=== PATIENT | female | born 1960 | race Caucasian/White ===

== ENCOUNTER 2019-07-09 19:29 | Emergency (ER) | payer BC ==
[~2019-07-09] VITALS: Wt 104.3 kg
[~2019-07-09 19:29] MED LIST: 'PARAFON FORTE500 M1 PO; ASPIRIN CHILDRE81 MG PO; ATIVAN1 MG PO; CARVEDILOL12.5 MG PO; CITALOPRAM20 MG PO; HYDR25T PO; HYDROCODONE BIT1 T11 PO; LISINOPRIL20 MG PO; LISINOPRIL5 MG PO; LOVASTATIN40 MG PO; NITROSTAT0.4 MG SL; PERCOCET 325 MG1 TA3 PO; PREDNISONE10 MG PO; SKELAXIN800 M1 PO; SYNTHROID,LEV100 MCG PO; ZESTRIL,PRINIVI10 MG PO; ZOLPIDEM5 MG PO
[2019-07-09 19:30] VITALS: BP 133/70
== END 2019-07-09 21:21 | disposition home or self-care (01) ==
LOC: ED 19:29
DX: S93.402A Sprain of unspecified ligament of left ankle, initial encounter (principal); I10 Essential (primary) hypertension; E03.9 Hypothyroidism, unspecified; E78.00 Pure hypercholesterolemia, unspecified; F17.200 Nicotine dependence, unspecified, uncomplicated; Z88.8 Allergy status to other drugs, medicaments and biological substances; Z79.899 Other long term (current) drug therapy; W10.8XXA Fall (on) (from) other stairs and steps, initial encounter; Y93.89 Activity, other specified; Y92.89 Other specified places as the place of occurrence of the external cause; Y99.8 Other external cause status

== ENCOUNTER 2019-12-14 12:01 | Inpatient (IN) | payer BC ==
[~2019-12-14] VITALS: Ht 168 cm; Wt 140.6 kg
[2019-12-14 12:49] LABS: BASO % 0.3 % (0.0-1.0); EOS # 0.2 10*3/uL (0.0-0.4); EOS % 2.4 % (1.0-4.0); HEMATOCRIT 41.3 % (37.0-47.0); LYMPH % 34.6 % (27.0-41.0); MEAN CELL VOLUME 94.1 fl (81.0-99.0); MEAN CORPUSCULAR HGB CONC 32.9 g/dl (33.0-37.0); MEAN PLATELET VOLUME 11.5 fl (9.6-12.3); MONO # 0.9 10*3/uL (0.1-1.0); MONO % 10.1 % (3.0-9.0); NEUT # 4.6 10*3/uL (2.3-7.9); NEUT % 52.4 % (47.0-73.0); PLATELET COUNT AUTOMATED 195 10*3/uL (130-400); RED BLOOD COUNT 4.39 10*6/uL (4.10-5.10); RED CELL DISTRI WIDTH 13.1 % (0-14.5); WHITE BLOOD COUNT 8.7 10*3/uL (4.8-10.8)
[2019-12-14 13:00] VITALS: BP 126/84
[2019-12-14 13:00] LABS: ACT PARTIAL THROMBO TIME 26.1 SECONDS (20.0-32.1); INTERNATIONAL NORM RATIO 0.9 (2.0-3.5)
[2019-12-14 13:05] LABS: ALBUMIN 3.5 gm/dl (3.1-4.5); ALKALINE PHOSPHATASE 87 U/L (45-117); BUN 15 mg/dl (7-24); CHLORIDE 107 mmol/L (98-107); CREATININE 0.82 mg/dL (0.55-1.02); POTASSIUM 3.2 mmol/L (3.5-5.1); SGOT/AST 22 IU/L (3-35); SGPT/ALT 33 U/L (12-78); SODIUM 140 mmol/L (136-145); TOTAL PROTEIN 7.6 gm/dL (6.4-8.2)
[2019-12-14 13:06] LABS: TROPONIN I < 0.015 ng/ml (<0.045)
[2019-12-14 15:00] VITALS: BP 124/82
[2019-12-14 16:00] VITALS: BP 126/81
[2019-12-14 17:00] VITALS: BP 122/88
[2019-12-14 18:00] VITALS: BP 120/64
[2019-12-14 20:00] VITALS: BP 136/69
[2019-12-15] VITALS: BP 99/50
[2019-12-15 06:10] LABS: BASO % 0.4 % (0.0-1.0); EOS # 0.2 10*3/uL (0.0-0.4); EOS % 2.8 % (1.0-4.0); HEMATOCRIT 39.3 % (37.0-47.0); LYMPH # 2.6 10*3/uL (1.3-4.4); MEAN CELL VOLUME 93.6 fl (81.0-99.0); MEAN CORPUSCULAR HGB 30.2 pg (27.0-31.0); MEAN CORPUSCULAR HGB CONC 32.3 g/dl (33.0-37.0); MEAN PLATELET VOLUME 11.2 fl (9.6-12.3); MONO # 0.7 10*3/uL (0.1-1.0); MONO % 9.4 % (3.0-9.0); NEUT # 3.9 10*3/uL (2.3-7.9); NEUT % 52.1 % (47.0-73.0); PLATELET COUNT AUTOMATED 211 10*3/uL (130-400); RED CELL DISTRI WIDTH 13.2 % (0-14.5); WHITE BLOOD COUNT 7.5 10*3/uL (4.8-10.8)
[2019-12-15 06:36] LABS: BUN 16 mg/dl (7-24); CHLORIDE 108 mmol/L (98-107); CHOLESTEROL 218 mg/dL (<200); CREATININE 0.79 mg/dL (0.55-1.02); POTASSIUM 3.5 mmol/L (3.5-5.1); SODIUM 140 mmol/L (136-145); TRIGLYCERIDES 152 mg/dl (<150); VLDL CHOLESTEROL 30 mg/dL (6-40)
[2019-12-15 06:46] LABS: HDL CHOLESTEROL 36 mg/dl (40-60); LDL CHOLESTEROL 152 mg/dL (9-159)
[2019-12-15 07:37] LABS: VITAMIN D, 25-HYDROXY 14.4 ng/mL (30-100)
[2019-12-15 08:00] VITALS: BP 114/64
[2019-12-15] MEDS ORDERED: HYDR25T PO (09:16)
[2019-12-15] MEDS ORDERED: LOSARTAN POTASS50 M1 PO (09:16)
[2019-12-15] MEDS ORDERED: ASPIRIN ADULT L81 M1 PO (09:18)
[2019-12-15 12:00] VITALS: BP 142/75
[2019-12-15] MEDS ORDERED: VITAMIN D325 MCG PO (15:02)
== END 2019-12-15 16:38 | disposition home or self-care (01) | DRG 392 ==
LOC: ED 12:01 → EDHOLD 17:46 → 4E 18:07
PROVIDERS: Emergency Medicine; Internal Medicine; ADMIT Internal Medicine
DX: K21.9 Gastro-esophageal reflux disease without esophagitis (principal); Z68.43 Body mass index [BMI] 50.0-59.9, adult; E78.5 Hyperlipidemia, unspecified; M19.90 Unspecified osteoarthritis, unspecified site; F32.9 Major depressive disorder, single episode, unspecified; F41.9 Anxiety disorder, unspecified; E66.9 Obesity, unspecified; E87.6 Hypokalemia; F17.210 Nicotine dependence, cigarettes, uncomplicated; I10 Essential (primary) hypertension; E03.9 Hypothyroidism, unspecified; I25.10 Atherosclerotic heart disease of native coronary artery without angina pectoris; E83.41 Hypermagnesemia; E78.1 Pure hyperglyceridemia; E87.8 Other disorders of electrolyte and fluid balance, not elsewhere classified; Z95.1 Presence of aortocoronary bypass graft; I25.2 Old myocardial infarction; Z83.3 Family history of diabetes mellitus; Z82.49 Family history of ischemic heart disease and other diseases of the circulatory system; Z88.8 Allergy status to other drugs, medicaments and biological substances; Z71.6 Tobacco abuse counseling; Z90.710 Acquired absence of both cervix and uterus; Z82.3 Family history of stroke

== ENCOUNTER 2020-06-13 01:36 | Emergency (ER) | payer BC ==
[~2020-06-13] VITALS: Ht 167.6 cm; Wt 130.6 kg
[~2020-06-13 01:36] MED LIST changes: +ASPIRIN ADULT L81 M1 PO; +LOSARTAN POTASS50 M1 PO; +VITAMIN D325 MCG PO
[2020-06-13 02:07] VITALS: BP 141/78
[2020-06-13 02:12] LABS: BASO # 0.1 10*3/uL (0.0-0.1); BASO % 0.6 % (0.0-1.0); EOS # 0.1 10*3/uL (0.0-0.4); EOS % 1.3 % (1.0-4.0); HEMATOCRIT 44.8 % (37.0-47.0); LYMPH # 3.5 10*3/uL (1.3-4.4); MEAN CELL VOLUME 90.1 fl (81.0-99.0); MEAN CORPUSCULAR HGB 29.2 pg (27.0-31.0); MEAN CORPUSCULAR HGB CONC 32.4 g/dl (33.0-37.0); MEAN PLATELET VOLUME 11.9 fl (9.6-12.3); MONO # 0.8 10*3/uL (0.1-1.0); MONO % 7.6 % (3.0-9.0); NEUT # 6.3 10*3/uL (2.3-7.9); NEUT % 58.3 % (47.0-73.0); PLATELET COUNT AUTOMATED 253 10*3/uL (130-400); RED BLOOD COUNT 4.97 10*6/uL (4.10-5.10); RED CELL DISTRI WIDTH 12.7 % (0-14.5); WHITE BLOOD COUNT 10.9 10*3/uL (4.8-10.8)
[2020-06-13 02:36] LABS: ALBUMIN 3.5 gm/dl (3.1-4.5); ALKALINE PHOSPHATASE 117 U/L (45-117); BUN 19 mg/dl (7-24); CHLORIDE 104 mmol/L (98-107); CREATININE 1.51 mg/dL (0.55-1.02); POTASSIUM 2.8 mmol/L (3.5-5.1); SGOT/AST 26 IU/L (3-35); SGPT/ALT 29 U/L (12-78); SODIUM 139 mmol/L (136-145); TOTAL PROTEIN 8.1 gm/dL (6.4-8.2)
[2020-06-13 02:37] LABS: TROPONIN I < 0.015 ng/ml (<0.045)
== END 2020-06-13 03:51 | disposition short-term general hospital (02) ==
LOC: ED 01:36
PROVIDERS: Internal Medicine
DX: I21.19 ST elevation (STEMI) myocardial infarction involving other coronary artery of inferior wall (principal); I10 Essential (primary) hypertension; F17.200 Nicotine dependence, unspecified, uncomplicated; Z88.8 Allergy status to other drugs, medicaments and biological substances; Z79.899 Other long term (current) drug therapy; Z79.82 Long term (current) use of aspirin; Z95.1 Presence of aortocoronary bypass graft

== ENCOUNTER 2021-09-08 23:18 | Emergency (ER) | payer OTHER ==
[~2021-09-08] VITALS: Ht 170.1 cm; Wt 143.3 kg
[2021-09-08 23:30] VITALS: BP 124/63
[2021-09-08 23:56] LABS: BASO % 0.4 % (0.0-1.0); EOS # 0.2 10*3/uL (0.0-0.4); EOS % 2.3 % (1.0-4.0); LYMPH # 2.6 10*3/uL (1.3-4.4); LYMPH % 27.1 % (27.0-41.0); MEAN CELL VOLUME 91.5 fl (81.0-99.0); MEAN CORPUSCULAR HGB 30.1 pg (27.0-31.0); MEAN CORPUSCULAR HGB CONC 32.9 g/dl (33.0-37.0); MEAN PLATELET VOLUME 10.5 fl (9.6-12.3); MONO # 0.9 10*3/uL (0.1-1.0); MONO % 9.3 % (3.0-9.0); NEUT # 5.7 10*3/uL (2.3-7.9); NEUT % 60.7 % (47.0-73.0); PLATELET COUNT AUTOMATED 208 10*3/uL (130-400); RED BLOOD COUNT 4.48 10*6/uL (4.10-5.10); RED CELL DISTRI WIDTH 13.1 % (0-14.5); WHITE BLOOD COUNT 9.4 10*3/uL (4.8-10.8)
[2021-09-09 00:13] LABS: ALKALINE PHOSPHATASE 105 U/L (45-117); BUN 12 mg/dl (7-24); CHLORIDE 108 mmol/L (98-107); CREATININE 0.99 mg/dL (0.55-1.02); POTASSIUM 3.4 mmol/L (3.5-5.1); SGOT/AST 18 IU/L (3-35); SGPT/ALT 31 U/L (12-78); SODIUM 139 mmol/L (136-145); TOTAL PROTEIN 7.3 gm/dL (6.4-8.2)
[2021-09-09] MEDS ORDERED: PREDNISONE10 MG PO (02:46)
[2021-09-09] MEDS ORDERED: OXYCODONE-ACET1 EAC1 PO (02:46)
[2021-09-09] MEDS ORDERED: CYCLOBENZAPRINE10 MG PO (02:46)
== END 2021-09-09 02:39 | disposition home or self-care (01) ==
LOC: ED 23:18
PROVIDERS: Emergency Medicine
DX: M54.41 Lumbago with sciatica, right side (principal); Z88.8 Allergy status to other drugs, medicaments and biological substances; Z79.899 Other long term (current) drug therapy; Z79.82 Long term (current) use of aspirin; Z90.710 Acquired absence of both cervix and uterus; Z95.1 Presence of aortocoronary bypass graft; Z98.890 Other specified postprocedural states; Z87.891 Personal history of nicotine dependence

== ENCOUNTER → 2021-10-12 | Outpatient (CLI) | payer OTHER ==
[~2021-10-12] MED LIST changes: +CYCLOBENZAPRINE10 MG PO; +OXYCODONE-ACET1 EAC1 PO
== END | disposition home or self-care (01) ==
LOC: RESCLI 06:41
PROVIDERS: ATTEND Internal Medicine Nephrology
DX: E66.01 Morbid (severe) obesity due to excess calories (principal); I11.9 Hypertensive heart disease without heart failure; I25.10 Atherosclerotic heart disease of native coronary artery without angina pectoris; E55.9 Vitamin D deficiency, unspecified; E03.9 Hypothyroidism, unspecified; Z68.42 Body mass index [BMI] 45.0-49.9, adult; E78.5 Hyperlipidemia, unspecified; Z86.79 Personal history of other diseases of the circulatory system; Z79.899 Other long term (current) drug therapy; Z79.82 Long term (current) use of aspirin; Z90.49 Acquired absence of other specified parts of digestive tract; Z88.8 Allergy status to other drugs, medicaments and biological substances

== ENCOUNTER → 2021-11-05 | Outpatient (CLI) | payer OTHER ==
[~2021-11-05] MED LIST changes: +IRBESARTAN150 MG PO; +VICTOZA 2-0.6 MG/0.1 SC; +ZETIA10 MG PO
== END | disposition home or self-care (01) ==
LOC: CARD 00:10
PROVIDERS: ATTEND Internal Medicine Cardiovascular Disease
DX: I25.10 Atherosclerotic heart disease of native coronary artery without angina pectoris (principal); R53.83 Other fatigue; I51.7 Cardiomegaly; E03.8 Other specified hypothyroidism; R07.9 Chest pain, unspecified; R06.02 Shortness of breath; I71.00 Dissection of unspecified site of aorta; G47.33 Obstructive sleep apnea (adult) (pediatric); E78.2 Mixed hyperlipidemia; I71.9 Aortic aneurysm of unspecified site, without rupture; Z95.1 Presence of aortocoronary bypass graft; Z72.0 Tobacco use

== ENCOUNTER 2022-05-23 20:59 | Emergency (ER) | payer OTHER ==
[~2022-05-23] VITALS: Ht 165.1 cm; Wt 140.6 kg
[2022-05-23 21:04] VITALS: BP 114/50
[2022-05-23] MEDS ORDERED: REGLAN10 M1 PO (22:38)
== END 2022-05-23 23:18 | disposition home or self-care (01) ==
LOC: ED 20:59
DX: U07.1 COVID-19 (principal); M54.2 Cervicalgia; M54.9 Dorsalgia, unspecified; F17.210 Nicotine dependence, cigarettes, uncomplicated; Z88.8 Allergy status to other drugs, medicaments and biological substances; Z79.899 Other long term (current) drug therapy; Z79.82 Long term (current) use of aspirin; Z90.710 Acquired absence of both cervix and uterus; Z90.49 Acquired absence of other specified parts of digestive tract; Z95.5 Presence of coronary angioplasty implant and graft

== ENCOUNTER → 2022-06-02 | Outpatient (CLI) | payer OTHER ==
[~2022-06-02] MED LIST changes: +REGLAN10 M1 PO
== END | disposition home or self-care (01) ==
LOC: RAD 09:44
PROVIDERS: ATTEND Family Medicine
DX: R05.8 Other specified cough (principal)

== ENCOUNTER 2022-10-06 09:28 | Inpatient (IN) | payer OTHER ==
[2022-10-06] VITALS (11 sets, daily range): BP systolic 98–154; BP diastolic 40–80
[~2022-10-06] VITALS: Ht 167.6 cm; Wt 140.6 kg
[2022-10-06 10:21] LABS: BASO % 0.5 % (0.0-1.0); EOS # 0.2 10*3/uL (0.0-0.4); HEMATOCRIT 42.4 % (37.0-47.0); LYMPH # 2.2 10*3/uL (1.3-4.4); LYMPH % 28.6 % (27.0-41.0); MEAN CELL VOLUME 93.2 fl (81.0-99.0); MEAN CORPUSCULAR HGB 30.3 pg (27.0-31.0); MEAN CORPUSCULAR HGB CONC 32.5 g/dl (33.0-37.0); MEAN PLATELET VOLUME 10.7 fl (9.6-12.3); MONO # 0.7 10*3/uL (0.1-1.0); MONO % 9.3 % (3.0-9.0); NEUT # 4.5 10*3/uL (2.3-7.9); NEUT % 58.3 % (47.0-73.0); PLATELET COUNT AUTOMATED 227 10*3/uL (130-400); RED BLOOD COUNT 4.55 10*6/uL (4.10-5.10); RED CELL DISTRI WIDTH 13.1 % (0-14.5); WHITE BLOOD COUNT 7.8 10*3/uL (4.8-10.8)
[2022-10-06 10:31] LABS: ACT PARTIAL THROMBO TIME 25.9 SECONDS (20.0-32.1); INTERNATIONAL NORM RATIO 0.9 (2.0-3.5)
[2022-10-06 10:40] LABS: CHLORIDE 106 mmol/L (98-107); POTASSIUM 3.3 mmol/L (3.4-5.1)
[2022-10-06 10:53] LABS: ALKALINE PHOSPHATASE 97 U/L (46-116); BUN 13 mg/dl (9-23); SGPT/ALT 32 U/L (10-49); TOTAL PROTEIN 7.3 gm/dL (6.0-8.0)
[2022-10-06] MEDS ORDERED: ROSUVASTATIN CA40 MG PO (14:21)
[2022-10-06] MEDS ORDERED: VITAMIN D31250 MC1 PO (14:22)
[2022-10-07 06:10] LABS: BASO % 0.6 % (0.0-1.0); EOS # 0.2 10*3/uL (0.0-0.4); EOS % 2.9 % (1.0-4.0); HEMATOCRIT 42.7 % (37.0-47.0); LYMPH # 3.1 10*3/uL (1.3-4.4); LYMPH % 45.2 % (27.0-41.0); MEAN CELL VOLUME 94.1 fl (81.0-99.0); MEAN CORPUSCULAR HGB 29.7 pg (27.0-31.0); MEAN CORPUSCULAR HGB CONC 31.6 g/dl (33.0-37.0); MEAN PLATELET VOLUME 10.8 fl (9.6-12.3); MONO # 0.7 10*3/uL (0.1-1.0); MONO % 9.7 % (3.0-9.0); NEUT # 2.9 10*3/uL (2.3-7.9); NEUT % 41.3 % (47.0-73.0); PLATELET COUNT AUTOMATED 206 10*3/uL (130-400); RED BLOOD COUNT 4.54 10*6/uL (4.10-5.10); RED CELL DISTRI WIDTH 13.1 % (0-14.5); WHITE BLOOD COUNT 6.9 10*3/uL (4.8-10.8)
[2022-10-07 06:21] LABS: ALKALINE PHOSPHATASE 76 U/L (46-116); BUN 13 mg/dl (9-23); CHLORIDE 100 mmol/L (98-107); POTASSIUM 3.6 mmol/L (3.4-5.1); SGPT/ALT 31 U/L (10-49); TOTAL PROTEIN 6.8 gm/dL (6.0-8.0)
[2022-10-07 08:00] VITALS: BP 94/45
[2022-10-07 12:00] VITALS: BP 126/74
[2022-10-07 16:00] VITALS: BP 133/74
[2022-10-07] MEDS ORDERED: CYCLOBENZAPRINE5 M3 PO (16:08)
[2022-10-07] MEDS ORDERED: LEVOTHYROXINE150 MCG PO (16:08)
[2022-10-07] MEDS ORDERED: ATORVASTATIN CA40 M1 PO (17:34)
== END 2022-10-07 19:17 | disposition home or self-care (01) | DRG 313 ==
LOC: ED 09:28 → EDHOLD 11:10 → 5E 19:07
PROVIDERS: Emergency Medicine; Physical Therapist; ADMIT Internal Medicine; ATTEND Internal Medicine
PROC: 4A02XM4 Measurement of Cardiac Total Activity, External Approach (ICD-10-PCS; principal; 2022-10-07)
PROC: 3E073KZ Introduction of Other Diagnostic Substance into Coronary Artery, Percutaneous Approach (ICD-10-PCS; 2022-10-07)
DX: R07.9 Chest pain, unspecified (principal); I25.110 Atherosclerotic heart disease of native coronary artery with unstable angina pectoris; M53.86 Other specified dorsopathies, lumbar region; E87.6 Hypokalemia; F17.210 Nicotine dependence, cigarettes, uncomplicated; E66.01 Morbid (severe) obesity due to excess calories; I71.40 Abdominal aortic aneurysm, without rupture, unspecified; I10 Essential (primary) hypertension; R73.9 Hyperglycemia, unspecified; E78.5 Hyperlipidemia, unspecified; E03.9 Hypothyroidism, unspecified; Z95.5 Presence of coronary angioplasty implant and graft; Z90.710 Acquired absence of both cervix and uterus; Z95.1 Presence of aortocoronary bypass graft; Z82.49 Family history of ischemic heart disease and other diseases of the circulatory system; Z68.42 Body mass index [BMI] 45.0-49.9, adult; Z83.3 Family history of diabetes mellitus; Z88.8 Allergy status to other drugs, medicaments and biological substances; I25.2 Old myocardial infarction; Z79.82 Long term (current) use of aspirin; Z79.899 Other long term (current) drug therapy

== ENCOUNTER → 2022-10-26 | Outpatient (CLI) | payer OTHER ==
[~2022-10-26] MED LIST changes: +ATORVASTATIN CA40 M1 PO; +CYCLOBENZAPRINE5 M3 PO; +LEVOTHYROXINE150 MCG PO; +ROSUVASTATIN CA40 MG PO; +VITAMIN D31250 MC1 PO
== END | disposition home or self-care (01) ==
LOC: LAB 17:38
PROVIDERS: ATTEND Family Medicine
DX: I10 Essential (primary) hypertension (principal); M54.9 Dorsalgia, unspecified

== ENCOUNTER → 2023-01-13 | Outpatient (CLI) | payer OTHER | END | disposition home or self-care (01) | LOC: RAD 11:13 | PROVIDERS: ATTEND Family Medicine | DX: M17.12 Unilateral primary osteoarthritis, left knee (principal); M25.762 Osteophyte, left knee ==

== ENCOUNTER 2023-09-18 06:28 | Emergency (ER) | payer OTHER ==
[~2023-09-18] VITALS: Ht 165.1 cm; Wt 146.5 kg
[2023-09-18 06:35] VITALS: BP 141/65
[2023-09-18] MEDS ORDERED: TIZANIDINE HYDROCHLORIDE 2 MG PO ONE (07:30)
[2023-09-18] MEDS ORDERED: Dexamethasone Sodium Phospha 20 MG/5 ML VIAL IM ONE (08:55)
== END 2023-09-18 09:45 | disposition home or self-care (01) ==
LOC: ED 06:28
DX: M54.50 Low back pain, unspecified (principal); I10 Essential (primary) hypertension; I25.2 Old myocardial infarction; E78.00 Pure hypercholesterolemia, unspecified; E03.9 Hypothyroidism, unspecified; F17.210 Nicotine dependence, cigarettes, uncomplicated; Z88.8 Allergy status to other drugs, medicaments and biological substances; Z98.890 Other specified postprocedural states; Z90.710 Acquired absence of both cervix and uterus; Z90.49 Acquired absence of other specified parts of digestive tract

== ENCOUNTER 2023-11-09 11:15 | Inpatient (IN) | payer OTHER ==
[~2023-11-09] VITALS: Ht 165.1 cm; Wt 142.1 kg
[2023-11-09] VITALS (10 sets, daily range): BP systolic 114–190; BP diastolic 65–114
[~2023-11-09 11:15] MED LIST changes: +PREDNISONE50 MG PO
[2023-11-09 11:44] LABS: BASO # 0.1 10*3/uL (0.0-0.1); BASO % 0.5 % (0.0-1.0); EOS # 0.1 10*3/uL (0.0-0.4); EOS % 1.4 % (1.0-4.0); HEMATOCRIT 43.9 % (37.0-47.0); LYMPH # 3.5 10*3/uL (1.3-4.4); LYMPH % 33.6 % (27.0-41.0); MEAN CORPUSCULAR HGB 29.1 pg (27.0-31.0); MEAN PLATELET VOLUME 10.9 fl (9.6-12.3); MONO # 0.7 10*3/uL (0.1-1.0); MONO % 6.8 % (3.0-9.0); NEUT # 5.9 10*3/uL (2.3-7.9); NEUT % 57.4 % (47.0-73.0); PLATELET COUNT AUTOMATED 218 10*3/uL (130-400); RED BLOOD COUNT 4.67 10*6/uL (4.10-5.10); RED CELL DISTRI WIDTH 13.6 % (0-14.5); WHITE BLOOD COUNT 10.3 10*3/uL (4.8-10.8)
[2023-11-09] MEDS ORDERED: COREG6.25 MG PO (11:51)
[2023-11-09] MEDS ORDERED: REPATHA SU140 MG/1 M SQ (11:53)
[2023-11-09 12:00] LABS: ALKALINE PHOSPHATASE 98 U/L (46-116); BUN 10 mg/dl (9-23); CHLORIDE 109 mmol/L (98-107); POTASSIUM 3.5 mmol/L (3.4-5.1); SGPT/ALT 33 U/L (5-49); TOTAL PROTEIN 7.7 gm/dL (6.0-8.0)
[2023-11-09 12:04] LABS: ACT PARTIAL THROMBO TIME 26.1 SECONDS (20.0-32.1)
[2023-11-09] MEDS ORDERED: SODIUM CHLORIDE 0.9% 100 ML BAG IV ONE (12:45)
[2023-11-09] MEDS ORDERED: IOHEXOL 350 MG/ML 100 ML VIAL IV ONE (12:45)
[2023-11-09] MEDS ORDERED: hydrALAZINE hydrochloride 20 MG/ML VIAL IV ONE ×2 (15:10→17:55)
[2023-11-09] MEDS ORDERED: Ketorolac Tromethamine 15 MG/ML VIAL IV ONE (15:10)
[2023-11-09] MEDS ORDERED: ACETAMINOPHEN 650 MG SUPP R PRN (15:45)
[2023-11-09] MEDS ORDERED: BISACODYL 5 MG TAB PO PRN (15:45)
[2023-11-09] MEDS ORDERED: Magnesium Hydroxide 30 ML UDC PO PRN (15:45)
[2023-11-09] MEDS ORDERED: BISACODYL 10 MG SUPP R PRN (15:45)
[2023-11-09] MEDS ORDERED: ACETAMINOPHEN 325 MG TAB PO PRN (15:45)
[2023-11-09] MEDS ORDERED: ASPIRIN, CHEWABLE 81 MG TAB PO ONE (16:25)
[2023-11-09] MEDS ORDERED: Technetium Tc 99M Tetrofosmi 0.23 MG KIT IJ SCH (16:40)
[2023-11-09] MEDS ORDERED: HYDROCHLOROTHIAZIDE 25 MG TAB PO SCH (18:00)
[2023-11-09] MEDS ORDERED: CARVEDILOL 6.25 MG TAB PO ONE (19:00)
[2023-11-09] MEDS ORDERED: CARVEDILOL 6.25 MG TAB PO SCH (22:00)
[2023-11-09] MEDS ORDERED: ATORVASTATIN CALCIUM 40 MG TABLET PO SCH (22:00)
[2023-11-10] VITALS: BP 111/54; BP 144/86
[2023-11-10] MEDS ORDERED: Levothyroxine Sodium 75 MCG TAB PO SCH (06:00)
[2023-11-10] MEDS ORDERED: Regadenoson 0.4 MG/5 ML SYR IV ONE (06:42)
[2023-11-10 07:06] LABS: BASO # 0.1 10*3/uL (0.0-0.1); BASO % 0.7 % (0.0-1.0); EOS # 0.2 10*3/uL (0.0-0.4); EOS % 2.4 % (1.0-4.0); HEMATOCRIT 42.7 % (37.0-47.0); LYMPH # 2.7 10*3/uL (1.3-4.4); LYMPH % 36.2 % (27.0-41.0); MEAN CORPUSCULAR HGB 29.3 pg (27.0-31.0); MEAN CORPUSCULAR HGB CONC 31.9 g/dl (33.0-37.0); MEAN PLATELET VOLUME 11.3 fl (9.6-12.3); MONO # 0.6 10*3/uL (0.1-1.0); MONO % 7.8 % (3.0-9.0); NEUT # 3.9 10*3/uL (2.3-7.9); NEUT % 52.5 % (47.0-73.0); PLATELET COUNT AUTOMATED 214 10*3/uL (130-400); RED BLOOD COUNT 4.64 10*6/uL (4.10-5.10); RED CELL DISTRI WIDTH 13.8 % (0-14.5); WHITE BLOOD COUNT 7.5 10*3/uL (4.8-10.8)
[2023-11-10 07:32] LABS: ALKALINE PHOSPHATASE 83 U/L (46-116); BUN 13 mg/dl (9-23); CHLORIDE 107 mmol/L (98-107); CHOLESTEROL 218 mg/dL (<200); FREE T4 0.94 ng/dl (0.89-1.76); LDL CHOLESTEROL 148 mg/dL (9-159); POTASSIUM 3.8 mmol/L (3.4-5.1); SGPT/ALT 43 U/L (5-49); TRIGLYCERIDES 126 mg/dl (<150)
[2023-11-10 07:41] LABS: VITAMIN D, 25-HYDROXY 30.1 ng/mL (30-100)
[2023-11-10] MEDS ORDERED: Enoxaparin Sodium 40 MG/0.4 ML SYR SC SCH (10:00)
[2023-11-10] MEDS ORDERED: ASPIRIN, CHEWABLE 81 MG TAB PO SCH (10:00)
[2023-11-10 12:00] VITALS: BP 120/61
[2023-11-10 16:00] VITALS: BP 118/53
[2023-11-10] MEDS ORDERED: DIAZEPAM 10 MG/2 ML SYR IV ONE (16:30)
== END 2023-11-10 16:39 | disposition home or self-care (01) | DRG 305 ==
LOC: ED 11:15 → EDHOLD 15:10 → 5E 16:21
PROVIDERS: Student in an Organized Health Care Education/Training Program; ADMIT Internal Medicine; ATTEND Internal Medicine
PROC: 4A02XM4 Measurement of Cardiac Total Activity, External Approach (ICD-10-PCS; principal; 2023-11-10)
PROC: 3E073KZ Introduction of Other Diagnostic Substance into Coronary Artery, Percutaneous Approach (ICD-10-PCS; 2023-11-10)
DX: I16.1 Hypertensive emergency (principal); Z68.43 Body mass index [BMI] 50.0-59.9, adult; I10 Essential (primary) hypertension; E78.00 Pure hypercholesterolemia, unspecified; I25.10 Atherosclerotic heart disease of native coronary artery without angina pectoris; E78.5 Hyperlipidemia, unspecified; E87.8 Other disorders of electrolyte and fluid balance, not elsewhere classified; E66.01 Morbid (severe) obesity due to excess calories; F17.299 Nicotine dependence, other tobacco product, with unspecified nicotine-induced disorders; I71.40 Abdominal aortic aneurysm, without rupture, unspecified; Z86.79 Personal history of other diseases of the circulatory system; I25.2 Old myocardial infarction; Z95.5 Presence of coronary angioplasty implant and graft; Z88.8 Allergy status to other drugs, medicaments and biological substances; Z71.6 Tobacco abuse counseling

== ENCOUNTER → 2023-12-09 | Outpatient (CLI) | payer OTHER ==
[~2023-12-09] MED LIST changes: +COREG6.25 MG PO; +REPATHA SU140 MG/1 M SQ
== END | disposition home or self-care (01) ==
LOC: RAD 16:58
PROVIDERS: ATTEND Family Medicine
DX: M16.0 Bilateral primary osteoarthritis of hip (principal); M47.817 Spondylosis without myelopathy or radiculopathy, lumbosacral region; M25.852 Other specified joint disorders, left hip; M25.851 Other specified joint disorders, right hip

== ENCOUNTER → 2024-02-13 | Outpatient (CLI) | payer OTHER | END | disposition home or self-care (01) | LOC: RAD 01:21 | PROVIDERS: ATTEND Student in an Organized Health Care Education/Training Program | DX: M48.07 Spinal stenosis, lumbosacral region (principal); M54.16 Radiculopathy, lumbar region; M54.41 Lumbago with sciatica, right side; M54.42 Lumbago with sciatica, left side ==

== ENCOUNTER 2024-03-19 07:48 | Emergency (ER) | payer OTHER ==
[~2024-03-19] VITALS: Ht 165.1 cm; Wt 139.7 kg
[2024-03-19 07:53] VITALS: BP 102/56
[2024-03-19] MEDS ORDERED: TIZANIDINE HYDROCHLORIDE 2 MG PO ONE (07:55)
[2024-03-19] MEDS ORDERED: Dexamethasone Sodium Phospha 20 MG/5 ML VIAL IM ONE (07:55)
[2024-03-19 10:57] LABS: BASO # 0.1 10*3/uL (0.0-0.1); BASO % 0.5 % (0.0-1.0); EOS # 0.1 10*3/uL (0.0-0.4); EOS % 1.1 % (1.0-4.0); HEMATOCRIT 43.1 % (37.0-47.0); LYMPH # 1.3 10*3/uL (1.3-4.4); LYMPH % 12.4 % (27.0-41.0); MEAN CELL VOLUME 93.7 fl (81.0-99.0); MEAN CORPUSCULAR HGB 30.2 pg (27.0-31.0); MEAN CORPUSCULAR HGB CONC 32.3 g/dl (33.0-37.0); MEAN PLATELET VOLUME 10.4 fl (9.6-12.3); MONO # 0.3 10*3/uL (0.1-1.0); MONO % 2.5 % (3.0-9.0); NEUT # 8.8 10*3/uL (2.3-7.9); NEUT % 83.1 % (47.0-73.0); PLATELET COUNT AUTOMATED 212 10*3/uL (130-400); RED CELL DISTRI WIDTH 13.3 % (0-14.5); WHITE BLOOD COUNT 10.6 10*3/uL (4.8-10.8)
[2024-03-19 11:18] LABS: BUN 10 mg/dl (9-23); CHLORIDE 109 mmol/L (98-107); POTASSIUM 4.2 mmol/L (3.4-5.1)
[2024-03-19] MEDS ORDERED: ZANAFLEX2 M1 PO (11:46)
[2024-03-19] MEDS ORDERED: MEDROL DOSEPAK4 MG PO (11:46)
== END 2024-03-19 11:49 | disposition home or self-care (01) ==
LOC: ED 07:48
PROVIDERS: Internal Medicine
DX: M62.830 Muscle spasm of back (principal); I10 Essential (primary) hypertension; I25.2 Old myocardial infarction; E78.00 Pure hypercholesterolemia, unspecified; F17.200 Nicotine dependence, unspecified, uncomplicated; Z88.8 Allergy status to other drugs, medicaments and biological substances; Z90.710 Acquired absence of both cervix and uterus; Z98.890 Other specified postprocedural states

== ENCOUNTER 2025-03-19 18:46 | Emergency (ER) | payer OTHER ==
[~2025-03-19] VITALS: Ht 167.6 cm; Wt 99.8 kg
[~2025-03-19 18:46] MED LIST changes: +MEDROL DOSEPAK4 MG PO; +ZANAFLEX2 M1 PO
[2025-03-19 18:55] VITALS: BP 148/77
[2025-03-19] MEDS ORDERED: BACLOFEN 10 MG TAB PO ONE (19:00)
[2025-03-19] MEDS ORDERED: Dexamethasone Sodium Phospha 20 MG/5 ML VIAL IM ONE (19:00)
[2025-03-19] MEDS ORDERED: PREDNISONE50 MG PO (19:03)
[2025-03-19] MEDS ORDERED: BACLOFEN5 MG PO (19:03)
== END 2025-03-19 20:16 | disposition home or self-care (01) ==
LOC: ED 18:46
DX: M62.830 Muscle spasm of back (principal); M54.50 Low back pain, unspecified; F17.200 Nicotine dependence, unspecified, uncomplicated; Z88.8 Allergy status to other drugs, medicaments and biological substances; Z79.899 Other long term (current) drug therapy; Z79.82 Long term (current) use of aspirin; Z90.710 Acquired absence of both cervix and uterus; Z95.5 Presence of coronary angioplasty implant and graft; Z90.49 Acquired absence of other specified parts of digestive tract